=== PATIENT | male | born 1955 ===

== ENCOUNTER 2017-02-02 09:23 | Emergency (ER) | payer OTHER ==
[2017-02-02 09:26] VITALS: BMI 21.9
[2017-02-02 09:27] VITALS: BP 132/62; PULSE 66; RESP 20; TEMP 98.4; O2SAT 100
--- NOTE | 2017-02-02 10:05 | ED PDOC ---
HPI: General Adult Time Seen by Provider: 02/02/17 09:38 Chief Complaint (Nursing): Med Refill Chief Complaint (Provider): Medication refill and chronic pain History Per: Patient History/Exam Limitations: no limitations Onset/Duration Of Symptoms: Days Current Symptoms Are (Timing): Still Present Additional Complaint(s): Pt. here with chronic pain in legs and back. Not new today. Ongoing for years. Pt. with no numbness, tingles, weakness, headaches, dizziness. No abd pain. No dyspnea. No neck pain. Ran out of gabapentin, endocet, and tamusolin. Pt. wants refills as his doctor was not there today. Past Medical History Reviewed: Nursing Documentation, Vital Signs Vital Signs: Last Vital Signs Temp 98.4 F 02/02/17 09:26 Pulse 66 02/02/17 09:26 Resp 20 02/02/17 09:26 BP 132/62 02/02/17 09:26 Pulse Ox 100 02/02/17 09:26 - Medical History PMH: Anxiety, Back Problems, HTN Other PMH: arthritis - Surgical History Surgical History: No Surg Hx - Family History Family History: States: Unknown Family Hx - Social History Alcohol: None Drugs: Denies - Immunization History Hx Tetanus Toxoid Vaccination: No Hx Influenza Vaccination: No Hx Pneumococcal Vaccination: No - Home Medications Home Medications: Ambulatory Orders Medication Instructions Recorded Acetaminophen/Oxycodone Hydr 1 tab PO Q6H PRN #15 tab 08/24/11 [Endocet 325 mg-10 mg] Tamsulosin [Flomax] 0.4 mg PO 08/24/11 Valsartan [Diovan] 320 mg PO DAILY 08/24/11 Acetaminophen/Oxycodone Hydr 1 tab PO Q6H #15 tab 11/04/12 [Percocet 10/325 mg Tab] Clonazepam 1 mg PO BID #2 tab 12/29/12 Klonopin 1 mg PO TID 12/29/12 Gabapentin [Neurontin] 600 mg PO DAILY PRN 5 Days tablet 02/02/17 Tamsulosin [Flomax] 0.4 mg PO DAILY PRN #6 cap 02/02/17 - Allergies Allergies/Adverse Reactions: Allergies Allergy/AdvReac Type Severity Reaction Status Date / Time No Known Allergies Allergy Verified 05/08/13 08:42 Review of Systems ROS Statement: Except As Marked, All Systems Reviewed And Found Negative Musculoskeletal: Positive for: Back Pain, Leg Pain, Other (chronic leg and back pain) Physical Exam - Reviewed Nursing Documentation Reviewed: Yes Vital Signs Reviewed: Yes - Physical Exam Appears: Positive for: Well, Non-toxic, No Acute Distress Head Exam: Positive for: ATRAUMATIC, NORMAL INSPECTION, NORMOCEPHALIC Skin: Positive for: Normal Color, Warm, DRY Eye Exam: Positive for: EOMI, Normal appearance, PERRL ENT: Positive for: Normal ENT Inspection Neck: Positive for: Normal, Painless ROM Cardiovascular/Chest: Positive for: Regular Rate, Rhythm Respiratory: Positive for: CNT, Normal Breath Sounds Gastrointestinal/Abdominal: Positive for: Normal Exam, Bowel Sounds, Soft. Negative for: Tenderness Back: Positive for: Normal Inspection. Negative for: L CVA Tenderness, R CVA Tenderness Extremity: Positive for: Normal ROM. Negative for: Tenderness, Pedal Edema Neurologic/Psych: Positive for: Alert, Oriented - ECG O2 Sat by Pulse Oximetry: 100 Pulse Ox Interpretation: Normal - Progress ED Course And Treament: 1041: Stable. Advised we do not refill narcotics. Fu with pcp or clinic. Ambulated with no issues. No incontinence or constipation. AAOx3. Disposition - Clinical Impression Clinical Impression: Chronic pain - Patient ED Disposition Is Patient to be Admitted: No Counseled Patient/Family Regarding: Diagnosis, Need For Followup, Rx Given - Disposition Referrals: [facility] [Outside] - 02/03/17 Disposition: Routine/Home Disposition Time: 10:42 Condition: STABLE Additional Instructions: Return if not better in 3 days. Prescriptions: Gabapentin [Neurontin] 600 mg PO DAILY PRN 5 Days tablet PRN Reason: Pain, Moderate (4-7) Tamsulosin [Flomax] 0.4 mg PO DAILY PRN #6 cap PRN Reason: Pain Instructions: Chronic Pain (ED)
== END 2017-02-02 10:59 | disposition home or self-care (01) ==
LOC: H.ER 09:23
DX: Z76.0 Encounter for issue of repeat prescription (principal); F41.9 Anxiety disorder, unspecified; G89.29 Other chronic pain; I10 Essential (primary) hypertension
CPT/HCPCS: 96372; 99282; J1885